=== PATIENT | female | born 1985 | race Caucasian/White ===

== ENCOUNTER → 2019-03-21 | Outpatient (CLI) | payer OTHER | LOC: COL.RAD 09:26 | DX: N85.8 Other specified noninflammatory disorders of uterus (principal); N92.5 Other specified irregular menstruation | CPT/HCPCS: Q9967 ==

== ENCOUNTER → 2021-03-25 | Outpatient (CLI) | payer OTHER | LOC: MC.RAD 08:52 | DX: N63.10 Unspecified lump in the right breast, unspecified quadrant (principal) ==